=== PATIENT | female | born 1990 | race Caucasian/White ===

== ENCOUNTER 2022-08-30 20:16 | Emergency (ER) | payer MEDICAID ==
[~2022-08-30] VITALS: Ht 157.5 cm; Wt 55.4 kg
[2022-08-30 21:25] VITALS: BP 134/92
[2022-08-30 23:34] LABS: CHLORIDE 101 mEq/L (98-107)
[2022-08-30 23:37] LABS: INR 1.1; PROTHROMBIN TIME 11.3 sec (9.6-11.0)
[2022-08-30 23:39] LABS: BASOPHILS % 1.1 % (0.0-2.0); EOSINOPHILS % 4.1 % (0.0-5.0); HEMOGLOBIN. 13.8 g/dL (12.0-16.0); LYMPHOCYTES % 40.4 % (20.0-50.0); MEAN CORPUSCULAR HEMOGLOBIN 33.5 pg (28.0-32.0); MEAN CORPUSCULAR VOLUME 96.9 fL (81.0-99.0); MEAN PLATELET VOLUME 9.2 fl (7.4-10.4); NEUTROPHILS % 45.4 % (40.0-76.0); PLATELET 66 x1000/uL (130-400); RED BLOOD CELL COUNT 4.12 mill/uL (4.2-5.4); RED CELL DISTRIBUTION WIDTH 12.3 % (11.6-14.6)
[2022-08-30 23:44] LABS: CREATINE KINASE 160 IU/L (26-192); ETHANOL BLOOD 252 mg/dL
== END 2022-08-31 01:28 | disposition home or self-care (01) ==
LOC: ER 20:16
DX: F10.229 Alcohol dependence with intoxication, unspecified (principal); Y90.8 Blood alcohol level of 240 mg/100 ml or more; R56.9 Unspecified convulsions
CPT/HCPCS: 36415; 80053; 80307; 80320; 80329; 82140; 82550; 85025; 99283; G0480